=== PATIENT | female | born 1940 | race Caucasian/White ===

== ENCOUNTER → 2020-04-09 | Outpatient (CLI) | payer MEDICARE ==
[~2020-04-09] MED LIST: REGADENOSON 0.4 MG/5 ML SYRINGE ONE
== END | disposition home or self-care (01) ==
LOC: CFH 08:18
PROVIDERS: ATTEND Physician Assistant Medical
DX: I48.21 Permanent atrial fibrillation (principal)
CPT/HCPCS: 78452; 93017; A9502; J2785